=== PATIENT | male | born 1940 | race Caucasian/White ===

== ENCOUNTER 2016-12-18 17:23 | Emergency (ER) | payer MEDICARE, BC ==
--- NOTE | ~2016-12-18 | CR20 ---
[facility]. [facility] A Service of [facility] & [facility] / [facility] RADIOLOGY TEXT RESULTS PATIENT: RAIN ALVAREZ LOCATION: SED : 38 UNIT #: [id number] AGE: [address]: Curry Elias MD SEX: M ORDER DR: [id number] [place] [id number] E MR#: [id number] Acc #: [id number] NAME: RAIN ALVAREZ SR : 1940 SEX: M STUDY DATE/TIME: 12/18/2016 18:20 UNIT: SED ROOM: STUDY DESCRIPTION: CR Ankle Min 3 Views Lt Attending Physician: Curry Elias M.D. Ordering Physician: Clarisse Garcia M.D. Primary Care Physician: James Spangler M.D. MEDICAL IMAGING REPORT This report is preliminary unless electronic signature is present. EXAM Left ankle 3 views HISTORY Ankle and hip pain onset today sitting in chair. FINDINGS Three views of the left ankle demonstrates lower extremity edema. No fracture or dislocation. Well corticated ossicle off the inferior aspect of the medial malleolus may represent the sequela of remote trauma. Ankle mortise appears intact. No joint effusion. Talus, subtalar joint unremarkable. Dictated by... Vale Miller M.D. THIS IS AN ELECTRONICALLY VERIFIED REPORT Vale Miller M.D. at 12/20/2016 3:13 PM ERNESTO/nelson TD: 12/19/2016 11:02 JOB #: [id number] MEDICAL IMAGING REPORT Page 1 of 1
--- NOTE | ~2016-12-18 | CR150 ---
[facility]. [facility] A Service of [facility] & [facility] RADIOLOGY TEXT RESULTS PATIENT: RAIN ALVAREZ LOCATION: SED : 39 UNIT #: [id number] AGE: [address]: Curry Elias MD SEX: M ORDER DR: [id number] [place] [id number] E MR#: [id number] Acc #: [id number] NAME: RAIN ALVAREZ SR : 1940 SEX: M STUDY DATE/TIME: 12/18/2016 18:20 UNIT: SED ROOM: STUDY DESCRIPTION: CR Hip Min 2 Views Lt Attending Physician: Curry Elias M.D. Ordering Physician: Clarisse Garcia M.D. Primary Care Physician: James Spangler M.D. MEDICAL IMAGING REPORT This report is preliminary unless electronic signature is present. EXAM Left hip. HISTORY Left hip pain onset today while sitting in a chair. FINDINGS AP pelvis, frog lateral view left hip demonstrates no fracture or dislocation. No lytic or blastic lesions. Arterial vascular calcifications noted. Mild degenerative change lower lumbar spine. Dictated by... Vale Miller M.D. THIS IS AN ELECTRONICALLY VERIFIED REPORT Vale Miller M.D. at 12/20/2016 3:12 PM ERNESTO/fredy TD: 12/19/2016 11:00 JOB #: [id number] MEDICAL IMAGING REPORT Page 1 of 1
[~2016-12-18 17:23] MED LIST: ACCUPRIL PO; ALBUTEROL MININEB; ALBUTEROL MININEB NEB; ALBUTEROL17 GM INH; AMITIZA24 MCG; AMITIZA24 MCG PO; AMLODIPINE BESYL5 MG PO; ATROVENT; AUGMENTIN PO; BUDESONIDE0.5 MG/2 M IH; COLACE PO; DIABETA5 M1 PO; ECOTRIN325 MG PO; FENOFIBRATE160 MG; FLOMAX0.4 M1; FLONASE 0.05% N16 G1; FLONASE16 GM; FLOVENT DI50 MCG/DIS IH; FUROSEMIDE40 MG; GLYBURIDE PO; HEARTBURN PREVE20 MG; IMDUR PO; IMDUR-ER60 MG PO; IPRATROPIUM0.2 MG/ML NEB; KCL PO; LOSARTAN POTAS100 MG PO; METFORMIN HCL500 M1 PO; METFORMIN PO; MONTELUKAST SOD10 MG; MOTRIN600 M1 PO; NITROSTAT0.4 MG; OMEPRAZOLE20 M1; OMEPRAZOLE20 M2 PO; PLAVIX PO; POTASSIUM CHLOR8 ME1; PREDNISONE; PREDNISONE PO; PROAIR HFA8.5 GM; PROAIR HFA8.5 GM IH; PROAIR RESPICL90 MCG INH; PROCTOSOL-HC28.35 GM RC; PULMICORT0.25 MG/2; ROBITUSSIN100 MG/51 PO; TASPRIN325 MG; TOPROL XL200 MG PO; TRICOR145 MG PO; UROXATRAL10 MG PO; VICODIN 5/1 TAB 5/50 PO; ZITHROMAX PO; [UNRECOGNIZED DRUG - OTHER]
[2016-12-18] MEDS ORDERED: AREDS PRESERVISION (17:47)
[2016-12-18] MEDS ORDERED: PULMICORT0.5 MG/21 INH (17:48)
[2016-12-18] MEDS ORDERED: NORVASC10 MG PO (17:48)
[2016-12-18] MEDS ORDERED: AMARYL PO (17:48)
[2016-12-18] MEDS ORDERED: STOOL SOFTENER1 EAC4 (17:48)
[2016-12-18] MEDS ORDERED: HEARTBURN RELIE10 M1 PO (17:49)
[2016-12-18] MEDS ORDERED: BAYER ASPIRIN325 M1 PO (17:49)
[2016-12-18] MEDS ORDERED: TRIGLIDE160 M1 PO (17:49)
[2016-12-18] MEDS ORDERED: FLOVENT DISKUS50 MCG (17:50)
[2016-12-18] MEDS ORDERED: MECLIZINE HCL12.5 M2 PO (17:50)
[2016-12-18] MEDS ORDERED: LASIX PO (17:50)
[2016-12-18] MEDS ORDERED: METOPROLOL SUC200 MG PO (17:51)
[2016-12-18] MEDS ORDERED: IMDUR-ER60 M1 PO (17:51)
[2016-12-18] MEDS ORDERED: LOSARTAN POTAS100 MG PO (17:51)
[2016-12-18] MEDS ORDERED: NITROGLYGERIN0.4 MG SL (17:52)
[2016-12-18] MEDS ORDERED: OMEPRAZOLE20 M2 PO (17:52)
[2016-12-18] MEDS ORDERED: POTASSIUM CHLO10 MEQ PO (17:53)
[2016-12-18] MEDS ORDERED: PROAIR RESPICL90 MCG (17:53)
[2016-12-18] MEDS ORDERED: SINGULAIR PO (17:54)
[2016-12-18] MEDS ORDERED: FLOMAX0.4 M1 PO (17:54)
[2016-12-18] MEDS ORDERED: ALBUTEROL17 GM INH (17:54)
[2016-12-18] MEDS ORDERED: ZYRTEC10 M2 PO (17:54)
== END 2016-12-18 19:51 | disposition short-term general hospital (02) ==
LOC: SED 17:23
DX: M25.552 Pain in left hip (principal); M25.572 Pain in left ankle and joints of left foot; I10 Essential (primary) hypertension; J44.9 Chronic obstructive pulmonary disease, unspecified; Z79.899 Other long term (current) drug therapy; Z79.82 Long term (current) use of aspirin
CPT/HCPCS: 73502; 73610; 99283